=== PATIENT | male | born 1955 | race Two or more races ===

== ENCOUNTER 2023-05-30 15:34 | Emergency (ER) | payer BC ==
[~2023-05-30] VITALS: Ht 177.8 cm; Wt 95.3 kg
[2023-05-30] MEDS ORDERED: LISINOPRIL40 MG PO (15:54)
[2023-05-30 19:46] LABS: HEMATOCRIT 39.8 % (39.0-48.0); HEMOGLOBIN 13.6 g/dL (13-16.00); MEAN CELL VOLUME 89.6 fL (80.0-100.00); MEAN CORPUSCULAR HEMOGLOBIN 30.6 pg (27.00-32.0); MEAN CORPUSCULAR HGB CONC 34.1 g/dl (32.0-36.0); PLATELET COUNT 173 K/uL (150-450); RED BLOOD COUNT 4.45 M/uL (4.00-6.00)
[2023-05-30 20:02] LABS: PH,URINE 6.5 (5.0-8.0); URINE APPEARANCE Clear; URINE BILIRRUBIN Negative (NEGATIVE); URINE BLOOD NHT; URINE COLOR Yellow; URINE GLUCOSE Negative (NEGATIVE); URINE LEUKOCYTE Negative; URINE NITRATE Negative; URINE PROTEIN Trace (NEGATIVE)
[2023-05-30 20:03] LABS: URINE BACTERIA 8.8 uL (0.0-1933); URINE RBC 22.2 uL (0.0-20.8)
[2023-05-30 20:04] LABS: URINE EPITHELIAL CELLS 0.7 uL (0.0-38.8); URINE WBC 0.6 uL (0.0-23.2)
[2023-05-30 20:29] LABS: ALBUMIN 3.9 gm/dL (3.4-5.0); BILIRUBIN TOTAL 0.66 mg/dL (0.3-1.2); CALCIUM 9.3 mg/dL (8.5-10.1); CREATININE SERUM 0.8 mg/dL (0.70-1.30); GFR 96.13; GLOBULINA 4.5 G/DL (2.4-3.5); POTASSIUM 3.91 mEq/L (3.5-5.1); TOTAL PROTEIN 8.4 gm/dL (6.4-8.2)
== END 2023-05-30 22:46 | disposition home or self-care (01) ==
LOC: ER 15:35
PROVIDERS: Emergency Medicine
DX: R10.31 Right lower quadrant pain (principal); I10 Essential (primary) hypertension